=== PATIENT | female | born 1990 | race Hispanic/Latino ===

== ENCOUNTER 2020-03-01 19:17 | Inpatient (IN) | payer SELFPAY ==
[~2020-03-01] VITALS: Ht 157.5 cm; Wt 72.9 kg
[2020-03-01] MEDS ORDERED: ONDANSETRON HCL 4 MG/2 ML VIAL ONE (19:46)
[2020-03-01] MEDS ORDERED: SODIUM CHLORIDE 0.9% 1000ML 1,000 ML IV ONE ×2 (19:47→23:26)
[2020-03-01 20:17] LABS: BASOPHILS % (AUTO) 0.1 % (0.0-5.0); HEMATOCRIT 28.9 % (36-48); LYMPHOCYTES % (AUTO) 2.8 % (21.0-51.0); MEAN CORPUSCULAR HGB CONC 30.1 g/dL (32.0-36.0); MEAN CORPUSCULAR VOLUME 69.8 fL (79-99); MONOCYTES % (AUTO) 3.3 % (3.0-13.0); NEUTROPHILS % (AUTO) 88.7 % (40.0-77.0); PLATELET COUNT (AUTO) 371 K/uL (130-400); RED BLOOD CELL COUNT(AUTO) 4.14 MIL/uL (4.00-5.50); RED CELL DISTRIBUTION WIDTH 19.1 % (11.0-15.5); WHITE BLOOD COUNT (AUTO) 20.1 K/uL (4.8-10.8)
[2020-03-01 20:23] LABS: CREATININE 0.8 mg/dL (0.5-1.5); POTASSIUM 3.3 mmol/L (3.5-5.1)
[2020-03-01 20:28] LABS: ALBUMIN 3.2 g/dL (3.5-5.0); BILIRUBIN,TOTAL 1.1 mg/dL (0.2-1.0); TOTAL PROTEIN, SERUM 7.9 g/dL (6.0-8.3)
[2020-03-01 20:30] LABS: APPEARANCE,URINE Cloudy (CLEAR); BILIRUBIN,URINE Moderate (NEGATIVE); COLOR,URINE Dark Yellow (YELLOW); GLUCOSE, URINE (UA) Negative (NEGATIVE); KETONES,URINE Trace mg/dL (NEGATIVE); LEUKOCYTE ESTERASE ,URINE Moderate (NEGATIVE); NITRATE,URINE Negative (NEGATIVE); OCCULT BLOOD,URINE Large (NEGATIVE); PROTEIN,URINE POS 1+ mg/dL (NEGATIVE)
[2020-03-01 20:47] LABS: HCG,QUAL RESULT NEGATIVE (NEGATIVE)
[2020-03-01] MEDS ORDERED: KETOROLAC TROMETHAMINE 30MG/ML ONE (20:54)
[2020-03-01] MEDS ORDERED: ZOSYN 3.375GM+NS 50ML 50 ML IV ONE (21:02)
[2020-03-01 21:11] LABS: BACTERIA,URINE Many /HPF (None Seen)
[2020-03-01 21:12] LABS: RBC,URINE 51-100 /HPF (0-1); WBC,URINE 51-100 /HPF (0-1)
[2020-03-01] MEDS ORDERED: POTASSIUM CHLORIDE 10% ELIXIR 20 MEQ/15 ML UDCUP PO PRN (23:00)
[2020-03-01] MEDS ORDERED: ACETAMINOPHEN 325 MG TAB PO PRN ×2 (23:00)
[2020-03-01] MEDS ORDERED: ONDANSETRON HCL 4 MG/2 ML VIAL IV PRN (23:00)
[2020-03-01] MEDS ORDERED: LIDOCAINE HCL-MPF 1% 2ML VIAL IV PRN (23:00)
[2020-03-01] MEDS ORDERED: POTASSIUM CHLORIDE 20MEQ/100ML 100 ML IV PRN (23:00)
[2020-03-01] MEDS ORDERED: CEFTRIAXONE SODIUM 1 GM ONE (23:25)
[2020-03-01] MEDS ORDERED: POTASSIUM CHLORIDE 20 MEQ ERTAB PO ONE (23:25)
[2020-03-02] VITALS (7 sets, daily range): BP systolic 104–143; BP diastolic 54–94
[2020-03-02] LABS: AMPHET/METH SCREEN,URINE NEGATIVE (NEGATIVE); BARBITURATE SCREEN, URINE NEGATIVE (NEGATIVE); BENZODIAZEPINES SCREEN,URINE POSITIVE (NEGATIVE); CANNABINOID SCREEN,URINE POSITIVE (NEGATIVE); COCAINE SCREEN,URINE NEGATIVE (NEGATIVE); OPIATE SCREEN,URINE NEGATIVE (NEGATIVE); PHENCYCLIDINE SCREEN,URINE NEGATIVE (NEGATIVE)
[2020-03-02] MEDS ORDERED: SODIUM CHLORIDE 0.9% 1000ML 1,000 ML IV ONE (03:07)
[2020-03-02 04:50] LABS: BASOPHILS % (AUTO) 0.1 % (0.0-5.0); EOSINOPHILS % (AUTO) 0.4 % (0.0-8.0); HEMATOCRIT 23.1 % (36-48); LYMPHOCYTES % (AUTO) 10.4 % (21.0-51.0); MEAN CORPUSCULAR HEMOGLOBIN 20.3 pg (27.0-33.0); MONOCYTES % (AUTO) 4.3 % (3.0-13.0); NEUTROPHILS % (AUTO) 83.5 % (40.0-77.0); PLATELET COUNT (AUTO) 303 K/uL (130-400); RED CELL DISTRIBUTION WIDTH 18.9 % (11.0-15.5); WHITE BLOOD COUNT (AUTO) 17.1 K/uL (4.8-10.8)
[2020-03-02 04:55] LABS: CREATININE 0.6 mg/dL (0.5-1.5); MAGNESIUM 1.6 mg/dL (1.80-2.40); POTASSIUM 3.5 mmol/L (3.5-5.1)
[2020-03-02 06:07] LABS: HEMATOCRIT 22.6 % (36-48)
[2020-03-02] MEDS ORDERED: MAGNESIUM 2GM PREMIX 50ML 50 ML IV SCH (10:15)
[2020-03-02 10:46] LABS: RETICULOCYTE % (AUTO) 1.07 % (0.42-2.23)
[2020-03-02 11:27] LABS: % IRON SATURATION 3.5 % (22-44)
[2020-03-02] MEDS ORDERED: SODIUM CHLORIDE 0.9% 1000ML 1,000 ML IV SCH (11:58)
[2020-03-02] MEDS: CEFTRIAXONE SODIUM 1 GM IV SCH (12:12)
[2020-03-02] MEDS: LACTOBACILLUS RHAMNOSUS GG 1 EACH CAP.SPRINK PO SCH ×2 (12:13→17:43)
[2020-03-02] MEDS: SODIUM CHLORIDE 0.9% 1000ML 1,000 ML IV SCH ×2 (12:16→21:58)
[2020-03-02] MEDS: ZOSYN 3.375GM+NS 50ML 50 ML IV SCH ×2 (15:08→21:12)
--- NOTE | 2020-03-02 15:28 | NUR ---
SANDOVAL PLAN NO ANSWER TO PHONE CALLS. DIMITRI WILL CONTINUE TO MONITOR. Addendum: 03/02/20 at 1528 by SILVANO GONZALEZ RN CM Amended: Links added.
--- NOTE | 2020-03-02 16:03 | NUR ---
DC PLAN VISITED WITH PATIENT. PATIENT LIVES WITH SPOUSE AND CHILDREN. PATIENT HAS NO SERVICES OR DMES. FEELS SAFE TO RETURN HOME. Addendum: 03/02/20 at 1605 by SILVANO GONZALEZ RN CM Amended: Links added.
[2020-03-03 03:54] VITALS: BP 142/84
[2020-03-03 05:03] LABS: BASOPHILS % (AUTO) 0.1 % (0.0-5.0); EOSINOPHILS % (AUTO) 0.8 % (0.0-8.0); HEMATOCRIT 26.9 % (36-48); LYMPHOCYTES % (AUTO) 18.2 % (21.0-51.0); MEAN CORPUSCULAR HEMOGLOBIN 21.1 pg (27.0-33.0); MEAN CORPUSCULAR HGB CONC 29.7 g/dL (32.0-36.0); MONOCYTES % (AUTO) 3.9 % (3.0-13.0); NEUTROPHILS % (AUTO) 76.2 % (40.0-77.0); PLATELET COUNT (AUTO) 317 K/uL (130-400); RED BLOOD CELL COUNT(AUTO) 3.79 MIL/uL (4.00-5.50); RED CELL DISTRIBUTION WIDTH 18.9 % (11.0-15.5); WHITE BLOOD COUNT (AUTO) 10.8 K/uL (4.8-10.8)
[2020-03-03] MEDS: ZOSYN 3.375GM+NS 50ML 50 ML IV SCH ×3 (05:24→21:00)
[2020-03-03 05:40] LABS: ALBUMIN 2.5 g/dL (3.5-5.0); BILIRUBIN,TOTAL 0.7 mg/dL (0.2-1.0); CREATININE 0.7 mg/dL (0.5-1.5); MAGNESIUM 2.6 mg/dL (1.80-2.40); PHOSPHORUS 4.1 mg/dL (2.5-4.9); POTASSIUM 3.1 mmol/L (3.5-5.1); TOTAL PROTEIN, SERUM 6.5 g/dL (6.0-8.3)
[2020-03-03] MEDS: CEFTRIAXONE SODIUM 1 GM IV SCH (08:26)
[2020-03-03] MEDS: POTASSIUM CHLORIDE 20 MEQ ERTAB PO PRN ×3 (08:26→16:59)
[2020-03-03] MEDS: LACTOBACILLUS RHAMNOSUS GG 1 EACH CAP.SPRINK PO SCH ×2 (08:26→16:59)
[2020-03-03] MEDS: SODIUM CHLORIDE 0.9% 1000ML 1,000 ML IV SCH ×2 (08:26→17:58)
[2020-03-03 08:30] VITALS: BP 142/92
[2020-03-03 09:14] LABS: HEPATITIS A ANTIBODY IGM Negative (Negative); HEPATITIS B CORE IGM Negative (Negative); HEPATITIS Bs ANTIGEN SCREEN P Negative (Negative)
[2020-03-03 12:52] VITALS: BP 143/84
[2020-03-03 16:30] VITALS: BP 144/89
--- NOTE | 2020-03-03 17:40 | NUR ---
SPOKE WITH RENE FELIPE, FOR REPORT FOR TRANSFER. RENE FELIPE TO CALL BACK TO RECEIVE REPORT.
--- NOTE | 2020-03-03 17:52 | NUR ---
RECEIVED CALL FROM RENE COHEN. REPORT GIVEN.
--- NOTE | 2020-03-03 18:30 | NUR ---
TRANSFERRED TO ROOM 324 WITH BELONGINGS. ACCOMPANIED BY PCP.
--- NOTE | 2020-03-03 18:37 | NUR ---
TSF FROM 229 PT IS A/AX 4 CAME BY WHEELCHAIR, NO PAIN TO ABDOMEN UPON PALPATION, BELLY SOFT AND NOT DISTENDED. VS ARE STABLE, WAITING ON URINE CX FOR D/C. PT SITTING UP IN BED EATING DINNER.
[2020-03-03 20:05] VITALS: BP 154/85
[2020-03-03 23:37] VITALS: BP 153/86
[2020-03-04] MEDS ORDERED: ALPR0.25 PO (03:44)
[2020-03-04 03:47] VITALS: BP 165/93
[2020-03-04] MEDS ORDERED: ALPRAZOLAM 0.25 MG TABLET ONE (03:48)
--- NOTE | 2020-03-04 03:52 | NUR ---
HOME MEDICATION PATIENT STATED SHE TAKES XANAX 0.25MG BID AT HOME BUT MEDICATION HAS NOT BEEN RESUMED DURING THIS ADMISSION. PATIENT'S MED REC WAS UPDATED AND HOSPITALIST WAS MADE AWARE. MEDICATION WAS RESUMED PER MAR MINE WEDGE SAWYER. FIRST DOSE WAS GIVEN AT THIS TIME.
[2020-03-04 05:22] LABS: BASOPHILS % (AUTO) 0.3 % (0.0-5.0); EOSINOPHILS % (AUTO) 0.9 % (0.0-8.0); HEMATOCRIT 29.7 % (36-48); LYMPHOCYTES % (AUTO) 18.5 % (21.0-51.0); MEAN CORPUSCULAR HEMOGLOBIN 21.4 pg (27.0-33.0); MEAN CORPUSCULAR VOLUME 71.4 fL (79-99); NEUTROPHILS % (AUTO) 74.7 % (40.0-77.0); PLATELET COUNT (AUTO) 325 K/uL (130-400); RED BLOOD CELL COUNT(AUTO) 4.16 MIL/uL (4.00-5.50); RED CELL DISTRIBUTION WIDTH 19.3 % (11.0-15.5); WHITE BLOOD COUNT (AUTO) 8.9 K/uL (4.8-10.8)
[2020-03-04 05:44] LABS: ALBUMIN 2.8 g/dL (3.5-5.0); BILIRUBIN,TOTAL 0.4 mg/dL (0.2-1.0); CREATININE 0.7 mg/dL (0.5-1.5); POTASSIUM 3.9 mmol/L (3.5-5.1); TOTAL PROTEIN, SERUM 7.4 g/dL (6.0-8.3)
[2020-03-04] MEDS: ZOSYN 3.375GM+NS 50ML 50 ML IV SCH ×2 (05:57→13:34)
[2020-03-04] MEDS: SODIUM CHLORIDE 0.9% 1000ML 1,000 ML IV SCH ×2 (05:57→13:58)
[2020-03-04 08:00] VITALS: BP 157/94
[2020-03-04] MEDS: CEFTRIAXONE SODIUM 1 GM IV SCH (08:35)
[2020-03-04] MEDS: LACTOBACILLUS RHAMNOSUS GG 1 EACH CAP.SPRINK PO SCH ×2 (08:35→17:49)
[2020-03-04] MEDS ORDERED: ALPRAZOLAM 0.25 MG TABLET PO SCH (09:00)
[2020-03-04 11:00] VITALS: BP 147/93
[2020-03-04 16:54] VITALS: BP 143/86
--- NOTE | 2020-03-04 17:57 | NUR ---
ANXIOUS TO GO HOME, PENDING BLD. CULTURE RESULTS.
[2020-03-04] MEDS ORDERED: CEPH-578 PO (18:52)
--- NOTE | 2020-03-04 19:39 | NUR ---
gave patient's discharge instructions as per deisi bro. keflex and xanax prescribed. patient's iv removed catheter tip intact. spoke with patient about coming to the ER if she experiences chest pain, severe head ache, confusion, etc. patient verbalizes understanding. her will come to pick her up.
== END 2020-03-04 20:05 | disposition home or self-care (01) | DRG 872 ==
LOC: EDH 19:17 → EDHIP 19:18 → 2AH 03-02 01:02 → 3DH 03-03 18:03
PROVIDERS: ADMIT Internal Medicine; ATTEND Internal Medicine
PROC: 30233N1 Transfusion of Nonautologous Red Blood Cells into Peripheral Vein, Percutaneous Approach (ICD-10-PCS; principal; 2020-03-02)
DX: A41.9 Sepsis, unspecified organism (principal); R17 Unspecified jaundice; N30.00 Acute cystitis without hematuria; E87.2 Acidosis; D64.9 Anemia, unspecified; E87.6 Hypokalemia; K52.9 Noninfective gastroenteritis and colitis, unspecified; Z20.828 Contact with and (suspected) exposure to other viral communicable diseases
CPT/HCPCS: 36415; 74176; 76770; 76856; 80048; 80053; 80074; 80305; 81001; 81025; 82270; 83540; 83550; 83605; 83735; 84100; 84145; 84443; 85014; 85018; 85025; 85045; 86308; 86850; 86900; 86901; 86923; 87040; 87088; 87426; 99291; G0378; J0696; J1885; J2405; J2543; J3475; J7030; P9016; U0003

== ENCOUNTER 2022-02-07 07:42 | Emergency (ER) | payer OTHER, MEDICAID ==
[~2022-02-07] VITALS: Ht 160 cm; Wt 65.8 kg
[~2022-02-07 07:42] MED LIST: ALPR0.25 PO; CEPH-578 PO
[2022-02-07 08:16] LABS: BASOPHILS % (AUTO) 0.4 % (0.0-5.0); EOSINOPHILS % (AUTO) 3.2 % (0.0-8.0); HEMATOCRIT 43.4 % (36-48); LYMPHOCYTES % (AUTO) 20.2 % (21.0-51.0); MEAN CORPUSCULAR HEMOGLOBIN 24.6 pg (27.0-33.0); MEAN CORPUSCULAR HGB CONC 31.3 g/dL (32.0-36.0); MEAN CORPUSCULAR VOLUME 78.6 fL (79-99); MONOCYTES % (AUTO) 8.6 % (3.0-13.0); NEUTROPHILS % (AUTO) 67.3 % (40.0-77.0); PLATELET COUNT (AUTO) 285 K/uL (130-400); RED BLOOD CELL COUNT(AUTO) 5.52 MIL/uL (4.00-5.50); RED CELL DISTRIBUTION WIDTH 15.4 % (11.0-15.5); WHITE BLOOD COUNT (AUTO) 7.9 K/uL (4.8-10.8)
[2022-02-07 08:22] LABS: APPEARANCE,URINE CLEAR (CLEAR); BILIRUBIN,URINE NEGATIVE (NEGATIVE); COLOR,URINE YELLOW (YELLOW); GLUCOSE, URINE (UA) NEGATIVE (NEGATIVE); KETONES,URINE NEGATIVE (NEGATIVE); LEUKOCYTE ESTERASE ,URINE MODERATE (NEGATIVE); NITRATE,URINE NEGATIVE (NEGATIVE); OCCULT BLOOD,URINE NEGATIVE (NEGATIVE); PH,URINE 6.5 (5.0-8.0); PROTEIN,URINE NEGATIVE (NEGATIVE); UROBILINOGEN,URINE 0.2 mg/dL (0.2-1.0)
[2022-02-07 08:29] LABS: ALBUMIN 4.5 g/dL (3.5-5.0); CREATININE 0.6 mg/dL (0.5-1.5); POTASSIUM 3.2 mmol/L (3.5-5.1); TOTAL PROTEIN, SERUM 8.6 g/dL (6.0-8.3)
[2022-02-07] MEDS ORDERED: ONDANSETRON 4MG INJ IVP ONE (08:30)
[2022-02-07] MEDS ORDERED: 0.9%NACL 1000ML 1,000 ML IV ONE (08:30)
[2022-02-07] MEDS ORDERED: KETOROLAC 30MG VIAL (30MG/ML) IVP ONE (08:30)
[2022-02-07 08:48] LABS: BACTERIA,URINE Rare /HPF (None Seen); RBC,URINE 0-1 /HPF (0-1); SQUAMOUS EPITHELIAL CELL,UR Few /HPF (0-2)
[2022-02-07 08:53] LABS: AMPHET/METH SCREEN,URINE NEGATIVE (NEGATIVE); BARBITURATE SCREEN, URINE NEGATIVE (NEGATIVE); BENZODIAZEPINES SCREEN,URINE POSITIVE (NEGATIVE); CANNABINOID SCREEN,URINE NEGATIVE (NEGATIVE); COCAINE SCREEN,URINE NEGATIVE (NEGATIVE); PHENCYCLIDINE SCREEN,URINE NEGATIVE (NEGATIVE)
[2022-02-07] MEDS ORDERED: ONDA4TAB10 PO (10:15)
[2022-02-07 10:16] VITALS: BP 123/72
[2022-02-09 12:11] LABS: OPIATES SCREEN URINE Negative ng/mL (Cutoff=300)
== END 2022-02-07 10:24 | disposition home or self-care (01) ==
LOC: EDH 07:42
DX: K52.9 Noninfective gastroenteritis and colitis, unspecified (principal); E86.9 Volume depletion, unspecified; E78.00 Pure hypercholesterolemia, unspecified; F32.A Depression, unspecified; F41.9 Anxiety disorder, unspecified; I10 Essential (primary) hypertension; Z79.1 Long term (current) use of non-steroidal anti-inflammatories (NSAID); Z87.440 Personal history of urinary (tract) infections
CPT/HCPCS: 99284; 74176; 96374; 96361; 96375; 80053; 80305; 84703; 83690; 85025; 87088; 36415; 81001; J7030; J2405; J1885